=== PATIENT | female | born 1990 | race Caucasian/White ===

== ENCOUNTER 2023-06-09 17:12 | Inpatient (IN) | payer OTHER, SELFPAY ==
[2023-06-09 17:23] VITALS: BP 113/79; PULSE 98; RESP 18; TEMP 37.7; O2SAT 99
[2023-06-09 17:25] VITALS: BMI 33.3
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
[2023-06-09 20:37] VITALS: BP 123/78; PULSE 96; RESP 16; TEMP 37.1; O2SAT 99
--- NOTE | 2023-06-09 20:59 | PC.NURSE ---
PT REPORTS ALLERGIES TO ACETAMINOPHEN, HALDOL AND ZOLOFT. PT REPORTS ALLERGY OF HIVES WITH ALL THREE. NEW ORDERS RECEIVED TO DISCONTINUE TYLENOL AND HALDOL PO AND IM. ORDERS PLACED AND PT EDUCATED. VERBALIZED UNDERSTANDING.
[2023-06-10 06:00] VITALS: BP 84/52; PULSE 73; RESP 16; TEMP 36.9; O2SAT 95
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
[2023-06-10 11:19] LABS: Glucose Point of Care 95 mg/dL (70-110)
[2023-06-10 14:00] VITALS: BP 102/66; PULSE 91; RESP 16; TEMP 37.1; O2SAT 100
[2023-06-10 15:51] LABS: Ferritin 95 ng/mL (15-150); Iron 24 ug/dL (37-145); Percent Saturation 7.8 % (20-50); Total Iron Binding Capacity 305 mcg/dl; Unsaturated Iron Binding 281 ug/dL (112-347)
[2023-06-10 19:51] VITALS: BP 115/67; PULSE 91; RESP 17; TEMP 37.1; O2SAT 100
[2023-06-11 06:00] VITALS: BP 110/65; PULSE 84; RESP 16; TEMP 37; O2SAT 100
[2023-06-11 14:00] VITALS: BP 109/73; PULSE 994; RESP 16; TEMP 36.6; O2SAT 100
[2023-06-11] MEDS: ARIPiprazole 10 mg Tablet 5 MG PO (14:01)
[2023-06-11] MEDS: buPROPion XL (24 HR) 300 mg Tablet PO (14:02)
[2023-06-11] MEDS: OLANZapine 5 mg ODT PO (15:29)
--- NOTE | 2023-06-11 15:33 | PC.NURSE ---
Patient sitting in between her bed and bedside table, crying. This RN asked patient what was wrong and she stated she had been fired by her employer over the phone just a few minutes ago. She said her boss was like a mom to her and that her boss did not offer an explanation as to why she was letting her go. Patient stated, I just want to cut so bad and it would be so easy. This RN administered zyprexa odt 10mg and suggested after she felt calm and comfortable that she should call her boss and talk with her. Patient agreed and calmed a bit after talking some more. She is now in dayroom, watching tv. She appears to be calmer.
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
[2023-06-11] MEDS: topiramate 100 mg Tablet PO (18:24)
[2023-06-11 22:00] VITALS: BP 116/66; PULSE 116; RESP 15; O2SAT 99
[2023-06-12 06:00] VITALS: BP 106/68; PULSE 69; RESP 17; TEMP 36.9; O2SAT 98
[2023-06-12] MEDS: tamsulosin 0.4 mg Capsule 0.8 MG PO (08:46)
[2023-06-12] MEDS: ARIPiprazole 10 mg Tablet 5 MG PO (08:46)
[2023-06-12] MEDS: buPROPion XL (24 HR) 300 mg Tablet PO (08:46)
[2023-06-12] MEDS: topiramate 100 mg Tablet PO ×2 (08:47→17:47)
[2023-06-12] MEDS: venlafaxine ER (24HR) 37.5 mg Capsule PO (08:47)
[2023-06-12 10:01] LABS: Basophils # 0.1 10^3/uL (0.0-0.1); Basophils % 0.8 %; Eosinophils # 0.2 10^3/uL (0.0-0.8); Eosinophils % 2.9 %; Hematocrit 32.5 % (36-47); Lymphocytes # 2.1 10^3/uL (0.8-4.8); Lymphocytes % 27.8 %; Mean Corpuscular Hemoglobin 22.1 pg (27-33); Mean Corpuscular Volume 78.9 fl (85-98); Mean Platelet Volume 10.4 fL (7.4-10.4); Monocytes # 0.6 10^3/uL (0.2-0.9); Monocytes % 7.2 %; Neutrophils # 4.61 10^3/uL (1.8-7.7); Neutrophils % 60.6 %; Nucleated Red Blood Cells % 0 %; Platelet Count 453 10^3/cmm (157-399); Red Blood Count 4.12 10^6/uL (3.85-5.65); Red Cell Distribution Width 23.7 % (12.1-15.1)
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
[2023-06-12 14:00] VITALS: BP 106/66; PULSE 93; RESP 16; TEMP 36.6; O2SAT 100
[2023-06-12 20:25] VITALS: BP 92/50; PULSE 84; RESP 15; TEMP 37.1; O2SAT 99
[2023-06-13 06:00] VITALS: BP 113/67; PULSE 71; RESP 17; TEMP 37.1; O2SAT 98
[2023-06-13] MEDS: tamsulosin 0.4 mg Capsule 0.8 MG PO (07:52)
[2023-06-13] MEDS: ARIPiprazole 10 mg Tablet 5 MG PO (07:52)
[2023-06-13] MEDS: venlafaxine ER (24HR) 37.5 mg Capsule PO (07:53)
[2023-06-13] MEDS: buPROPion XL (24 HR) 300 mg Tablet PO (07:53)
[2023-06-13] MEDS: topiramate 100 mg Tablet PO ×2 (07:53→17:26)
--- NOTE | 2023-06-13 11:15 | W.PM.NPUPNS ---
Subjective NPU Subjective: Patient presented today reporting that she is feeling better and hopeful for discharge sooner rather than later. She reports that she was probably overwhelmed mostly by the overworked situation she found herself in and poor sleep. She does not feel like she is at risk of repeating that behavior again. We talked about her supports. And she reports that she has a plan to meet with one of her most significant supports upon discharge. We talked about the likelihood of discharge by Friday. Mental Status Exam MSE Comments: This is an overweight versus obese white female in hospital scrubs with adequate grooming and limited eye contact. No abnormal movements except for psychomotor retardation. Cooperative with exam in mild distress. Bright red hair. Speech was decreased rate and volume. Mood described as getting better. Affect slightly subdued. Thought process organized. Thought content: Patient denied suicidal or homicidal ideation, there were no delusions reported or noted, she denied any auditory or visual hallucinations. Attention and concentration appeared intact and memory appeared mostly reliable but none were formally tested. She is alert and oriented x3. Insight and judgment are limited impulse control impaired. Vitals/I&O/Wt Last Vital Signs Temp 98.8 F 06/13/23 06:00 Pulse 71 06/13/23 06:00 Resp 17 06/13/23 06:00 BP 113/67 06/13/23 06:00 Pulse Ox 98 06/13/23 06:00 O2 Del Method Room Air 06/13/23 06:00 Data NPU 06/12/23 09:28 A&P Assessment and plan (1) MDD (major depressive disorder), recurrent episode, severe: (2) PTSD (post-traumatic stress disorder): (3) Borderline personality disorder: (4) Iron deficiency anemia: Plan 32-year-old white female admitted with significant suicide attempt with a history of borderline personality disorder major depressive disorder and PTSD currently without medications for the past 4 to 5 days after her overdose. 1. ?Encourage individual, group and milieu therapy. 2. Recommend sober living treatment at the highest level of care to which the patient is willing to commit. 3. Continue q-15 minute checks for safety 4. Start Effexor XR 37.5mg daily to target anxiety and depression. Patient is 75 mg prior to discharge. Restarted wellbutrin xl 300mg in am, and Abilify 5mg daily, 5, Workup for iron deficiency anemia with cause of anxiety and fatigue. Consider hospitalist consult. Involuntary Hold Information 96 Hour Hold: 96 Hour Involuntary Admission: No Attestations NPU Medical Necessity Statement*: Inpatient hospitalization is medically necessary and deemed to be the ?clinically appropriate intervention ?at this time.? We will monitor/initiate medications and make changes as indicated.? Her likely length of stay 1-3 days. Coding Level of Care Code Acute Code for g Fwd Diagnoses MDD (major depressive disorder), recurrent episode, severe F33.2 PTSD (post-traumatic stress disorder) F43.10 Borderline personality disorder F60.3 Iron deficiency anemia D50.9
[2023-06-13 14:00] VITALS: BP 123/78; PULSE 96; RESP 15; TEMP 37.4; O2SAT 100
[2023-06-13 19:45] VITALS: BP 121/82; PULSE 98; RESP 16; TEMP 37.3; O2SAT 100
[2023-06-14 06:00] VITALS: BP 103/66; PULSE 83; RESP 16; O2SAT 98
[2023-06-14] MEDS: buPROPion XL (24 HR) 300 mg Tablet PO (09:19)
[2023-06-14] MEDS: venlafaxine ER (24HR) 37.5 mg Capsule PO (09:19)
[2023-06-14] MEDS: tamsulosin 0.4 mg Capsule 0.8 MG PO (09:19)
[2023-06-14] MEDS: topiramate 100 mg Tablet PO ×2 (09:19→17:14)
[2023-06-14] MEDS: ARIPiprazole 10 mg Tablet 5 MG PO (09:20)
[2023-06-14 14:00] VITALS: BP 106/59; PULSE 127; RESP 15; TEMP 36.9; O2SAT 100
--- NOTE | 2023-06-14 16:33 | P.NPUPN_ITS ---
Subjective NPU Subjective: Patient presented today reporting she is feeling a little better. She reports needing to get a ride home. We discussed ways we can assist. We discussed possibly increasing her Effexor to 75 mg tomorrow after discussion of the risks, benefits and alternatives, she understood and agreed to proceed as is documented in this note. We discussed likely discharge at the beginning of the week po ssibly Friday. Mental Status Exam MSE Comments: This is an overweight versus obese white female in hospital scrubs with adequate grooming and limited eye contact. No abnormal movements except for psychomotor retardation. Cooperative with exam in mild distress. Bright red hair. Speech was decreased rate and volume. Mood described as getting better. Affect slightly subdued. Thought process organized. Thought content: Patient denied suicidal or homicidal ideation, there were no delusions reported or noted, she denied any auditory or visual hallucinations. Attention and concentration appeared intact and memory appeared mostly reliable but none were formally tested. She is alert and oriented x3. Insight and judgment are limited impulse control impaired. Vitals/I&O/Wt Last Vital Signs Temp 98.5 F 06/14/23 14:00 Pulse 127 H 06/14/23 14:00 Resp 15 06/14/23 14:00 BP 106/59 06/14/23 14:00 Pulse Ox 100 06/14/23 14:00 O2 Del Method Room Air 06/13/23 06:00 Data NPU 06/12/23 09:28 A&P Assessment and plan (1) MDD (major depressive disorder), recurrent episode, severe: (2) PTSD (post-traumatic stress disorder): (3) Borderline personality disorder: (4) Iron deficiency anemia: Plan 32-year-old white female admitted with significant suicide attempt with a history of borderline personality disorder major depressive disorder and PTSD currently without medications for the past 4 to 5 days after her overdose. 1. ?Encourage individual, group and milieu therapy. 2. Recommend sober living treatment at the highest level of care to which the patient is willing to commit. 3. Continue q-15 minute checks for safety 4. Start Effexor XR 37.5mg daily to target anxiety and depression. Patient is 75 mg prior to discharge. Restarted wellbutrin xl 300mg in am, and Abilify 5mg daily, 5, Workup for iron deficiency anemia with cause of anxiety and fatigue. Consider hospitalist consult. Involuntary Hold Information 96 Hour Hold: 96 Hour Involuntary Admission: No Attestations NPU Medical Necessity Statement*: Inpatient hospitalization is medically necessary and deemed to be the ?clinically appropriate intervention ?at this time.? We will monitor/initiate medications and make changes as indicated.? Her likely length of stay 2 days. Coding Level of Care Code Acute Code for [facility] Fwd Diagnoses MDD (major depressive disorder), recurrent episode, severe F33.2 PTSD (post-traumatic stress disorder) F43.10 Borderline personality disorder F60.3 Iron deficiency anemia D50.9
[2023-06-14] MEDS: docusate sodium 100 mg Capsule PO (20:39)
[2023-06-14] MEDS: trazodone 50 mg Tablet PO (20:39)
[2023-06-14 22:00] VITALS: BP 108/77; PULSE 94; RESP 18; TEMP 37.3; O2SAT 99
[2023-06-15 06:00] VITALS: BP 108/69; PULSE 74; RESP 16; O2SAT 99
[2023-06-15] MEDS: ARIPiprazole 10 mg Tablet 5 MG PO (10:10)
[2023-06-15] MEDS: venlafaxine ER (24HR) 37.5 mg Capsule PO (10:10)
[2023-06-15] MEDS: tamsulosin 0.4 mg Capsule 0.8 MG PO (10:11)
[2023-06-15] MEDS: polyethylene glycol 3350 Pkt 17 gm PO (10:11)
[2023-06-15] MEDS: buPROPion XL (24 HR) 300 mg Tablet PO (10:11)
[2023-06-15] MEDS: topiramate 100 mg Tablet PO ×2 (10:11→17:14)
--- NOTE | 2023-06-15 10:19 | W.PM.NPUPNS ---
Subjective NPU Subjective: Patient presented today reporting that she is continuing to improve. She reports she is tolerating the medication change and we discussed the risks, benefits and alternatives of increasing her Effexor XR to 75 mg p.o. daily tomorrow and she understood and agreed to proceed as is documented in this note. We discussed the continued likely plan for discharge in the morning with appropriate follow-up. Vitals/I&O/Wt Last Vital Signs Temp 99.1 F 06/14/23 22:00 Pulse 74 06/15/23 06:00 Resp 16 06/15/23 06:00 BP 108/69 06/15/23 06:00 Pulse Ox 99 06/15/23 06:00 O2 Del Method Room Air 06/15/23 06:00 Weight last 48 hrs Weight 94.971 kg Data NPU 06/12/23 09:28 A&P Assessment and plan (1) MDD (major depressive disorder), recurrent episode, severe: (2) PTSD (post-traumatic stress disorder): (3) Borderline personality disorder: (4) Iron deficiency anemia: Plan 32-year-old white female admitted with significant suicide attempt with a history of borderline personality disorder major depressive disorder and PTSD currently without medications for the past 4 to 5 days after her overdose. 1. ?Encourage individual, group and milieu therapy. 2. Recommend sober living treatment at the highest level of care to which the patient is willing to commit. 3. Continue q-15 minute checks for safety 4. Start Effexor XR 37.5mg daily to target anxiety and depression. Increase to 75 mg daily tomorrow. Restarted wellbutrin xl 300mg in am, and Abilify 5mg daily, 5, Workup for iron deficiency anemia with cause of anxiety and fatigue. Consider hospitalist consult. Involuntary Hold Information 96 Hour Hold: 96 Hour Involuntary Admission: No Attestations NPU Medical Necessity Statement*: Inpatient hospitalization is medically necessary and deemed to be the ?clinically appropriate intervention ?at this time.? We will monitor/initiate medications and make changes as indicated.? Her likely length of stay 1-2 days. Coding Level of Care Code Acute Code for [facility] Fwd Diagnoses MDD (major depressive disorder), recurrent episode, severe F33.2 PTSD (post-traumatic stress disorder) F43.10 Borderline personality disorder F60.3 Iron deficiency anemia D50.9
[2023-06-15 14:00] VITALS: BP 114/78; PULSE 109; RESP 15; TEMP 37.3; O2SAT 98
[2023-06-15 19:44] VITALS: BP 107/69; PULSE 90; RESP 15; TEMP 37.2; O2SAT 100
[2023-06-15] MEDS: docusate sodium 100 mg Capsule PO (20:12)
[2023-06-15] MEDS: trazodone 50 mg Tablet PO (20:12)
[2023-06-16 06:00] VITALS: BP 95/54; PULSE 90; RESP 16; TEMP 37.1; O2SAT 98
[2023-06-16] MEDS: tamsulosin 0.4 mg Capsule 0.8 MG PO (08:46)
[2023-06-16] MEDS: buPROPion XL (24 HR) 300 mg Tablet PO (08:46)
[2023-06-16] MEDS: topiramate 100 mg Tablet PO (08:46)
[2023-06-16] MEDS: venlafaxine ER (24HR) 37.5 mg Capsule PO ×2 (08:46→11:23)
[2023-06-16] MEDS: ARIPiprazole 10 mg Tablet 5 MG PO (08:46)
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
[2023-06-16 11:26] VITALS: BP 95/54; PULSE 90; RESP 16; TEMP 37.1; O2SAT 98
[2023-06-16 11:27] VITALS: BP 95/54; PULSE 90; RESP 16; TEMP 37.1; O2SAT 98
== END 2023-06-16 12:37 | disposition home or self-care (01) | DRG 918 ==
PROVIDERS: Admitting Provider Psychiatry & Neurology Psychiatry; PCP Family Medicine; Visit Provider Psychiatry & Neurology Psychiatry
DX: T43.292A Poisoning by other antidepressants, intentional self-harm, initial encounter (principal); F33.9 Major depressive disorder, recurrent, unspecified; T38.3X2A Poisoning by insulin and oral hypoglycemic [antidiabetic] drugs, intentional self-harm, initial encounter; T39.012A Poisoning by aspirin, intentional self-harm, initial encounter; Z63.4 Disappearance and death of family member; Z62.810 Personal history of physical and sexual abuse in childhood; F60.3 Borderline personality disorder; F43.10 Post-traumatic stress disorder, unspecified; D50.9 Iron deficiency anemia, unspecified; F41.9 Anxiety disorder, unspecified
CPT/HCPCS: 36415; 36416; 82728; 82962; 83540; 83550; 85025; 97150; 97165